=== PATIENT | female | born 1985 | race Caucasian/White ===

== ENCOUNTER 2017-03-05 13:54 | Emergency (ER) | payer SELFPAY ==
[2017-03-05 14:02] VITALS: RESP 16
[2017-03-05] MEDS ORDERED: ONDANSETRON 4 MG/2 ML VIAL IVP ONE (14:19)
[2017-03-05] MEDS ORDERED: NS 1,000 ML IV ONE ×2 (14:19→17:39)
[2017-03-05] MEDS ORDERED: HYDROmorphONE/DILAUDID 1 MG/ML INJ IVP ONE ×2 (14:19→17:39)
[2017-03-05 14:44] LABS: PLATELET COUNT 279 10^3/uL (150-400)
[2017-03-05] MEDS ORDERED: IOPAMIDOL (ISOVUE-300) 100 ML BTL ONE (16:29)
[2017-03-05] MEDS ORDERED: fentaNYL 100 MCG/2 ML INJ IVP ONE (16:29)
--- NOTE | 2017-03-05 17:11 | EDPHY ---
H & P Stated Complaint: intermittent mid abd pain and N and V and anorexia x9 days - Personal History LMP (Females 10-55): IUD In Place Current Tetanus/Diphtheria Vaccine: Yes Tetanus Vaccine Date: 2016 - Medical/Surgical History Hx Asthma: No Hx Chronic Respiratory Disease: No Hx Diabetes: No Hx Cardiac Disease: No Hx Renal Disease: No Hx Cirrhosis: No Hx Alcoholism: No Hx HIV/AIDS: No Hx Splenectomy or Spleen Trauma: No Other PMH: gastritis - Social History Smoking Status: Never smoked HPI/ROS: Chief complaint: Abdominal pain History of present illness: This is a 31-year-old female who presents to the emergency department for evaluation of abdominal pain. She reports the onset of symptoms approximately 9 days ago. Symptoms originate around the umbilicus but radiates to the right side. The right lower quadrant is most uncomfortable. She has had associated nausea and vomiting. Symptoms have waxed and waned in nature. She denies other associated signs or symptoms including no fevers, no diarrhea or constipation, no abnormal vaginal discharge or discomfort, no urinary symptoms. Review of systems: A 10 point review of systems was obtained and other than described above was negative (Jd Guardado) - Physical Exam Exam: General Appearance: Alert, nontoxic. Eyes: Pupils equal and round no pallor or injection. ENT, Mouth: Mucous membranes moist. Respiratory: There are no retractions, lungs are clear to auscultation. Cardiovascular: Regular rate and rhythm. Gastrointestinal: Bowel sounds are normal. There is mild guarding of the abdomen, patient is tender to the right side of the abdomen both upper and lower quadrant with point of maximal intensity in the right lower quadrant. Neurological: Alert and oriented x4. Strength and sensation intact and symmetrical. Skin: Warm and dry, no rashes. Musculoskeletal: Neck is supple non tender. Extremities are symmetrical, full range of motion. Psychiatric: Patient is oriented X 3, there is no agitation. (Jd Guardado) Constitutional: Initial Vital Signs Temperature (C) 36.9 C 03/05/17 13:59 Heart Rate 110 H 03/05/17 13:59 Respiratory Rate 16 03/05/17 13:59 Blood Pressure 149/99 H 03/05/17 13:59 O2 Sat (%) 95 03/05/17 13:59 O2 Delivery Mode Room Air Allergies/Adverse Reactions: No Known Allergies Allergy (Unverified 03/05/17 13:59) Home Medications: Medication Instructions Recorded Hydrocodone/APAP 325 [[place] 1 tab PO Q6H #10 tab 03/05/17 5/325 (*)] Ranitidine HCl 03/05/17 Medical Decision Making - Diagnostics Imaging Results: Imaging Impressions Abdomen Ultrasound 03/05/17 15:26 Impression: Suspect early appendicitis. Findings and recommendations discussed with Emergency Department physician, Jd Guardado PA-C at 1624 hours on March 05, 2017. Final report concurs with initial preliminary interpretation. Pelvic/Renal Ultrasound 03/05/17 15:26 Impression: 1. Appropriately-positioned intrauterine device. 2. Normal appearance of the ovaries, with no adnexal mass, torsion, or free fluid. Findings were discussed with Tigist Stanford PA-C at 18:22, on 03/05/2017. Abdomen CT 03/05/17 16:26 Impression: 1. Enlarged right ovary measuring 4 x 3.2 cm. Recommend ultrasound pelvis to rule out torsion. 2. No CT evidence of appendicitis, abscess or bowel obstruction. Cosign: Dr. Lawrence Hoover. Findings and recommendations discussed with Emergency Department physician, Dr. Brent العلي at 17:22 hour, 03/05/2017. Final report concurs with initial preliminary interpretation. I reviewed the CT and discussed the findings with Dr. Davis which shows a normal appendix but probable right ovarian cyst. Ultrasound recommended ( Brent العلي) ED Course/Re-evaluation: I saw and evaluated the patient at 5:20 p.m.. The patient, her , and I discussed imaging study results, treatment plan including recommendation for ultrasound. They expressed understanding and agreement Patient request pain medication. She will be medicated prior to ultrasound Re-evaluation at 6:45 p.m.. Patient is stable. She and I discussed imaging and lab results. We discussed treatment plan including criteria for return importance of follow-up further evaluation. She expresses understanding and agreement (Brent العلي) Differential Diagnosis: I considered appendicitis, urinary tract infection, ectopic , ovarian cyst, ovarian torsion (Brent العلي) - Data Points Laboratory Results: Laboratory Results 03/05/17 14:30 03/05/17 14:30 03/05/17 03/05/17 03/05/17 18:25 14:30 14:30 WBC RBC Hgb Hct MCV MCH MCHC RDW Plt Count MPV Neut % (Auto) Lymph % (Auto) Jenkins % (Auto) Eos % (Auto) Baso % (Auto) Nucleat RBC Rel Count Absolute Neuts (auto) Absolute Lymphs (auto) Absolute Monos (auto) Absolute Eos (auto) Absolute Basos (auto) Absolute Nucleated RBC Immature Gran % Immature Gran # Sodium 140 mEq/L mEq/L (134-144) Potassium 4.3 mEq/L mEq/L (3.5-5.2) Chloride 104 mEq/L mEq/L (97-110) Carbon Dioxide 18 mEq/l L mEq/l (22-31) Anion Gap 18 mEq/L H mEq/L (8-16) BUN 12 mg/dL mg/dL (7-23) Creatinine 0.7 mg/dL mg/dL (0.6-1.0) Estimated GFR > 60 Glucose 77 mg/dL mg/dL (70-100) Calcium 9.9 mg/dL mg/dL (8.5-10.4) Total Bilirubin 1.2 mg/dL mg/dL (0.1-1.4) Conjugated Bilirubin 0.3 mg/dL mg/dL (0.0-0.5) Unconjugated Bilirubin 0.9 mg/dL mg/dL (0.0-1.1) AST 21 IU/L IU/L (14-46) ALT 32 IU/L IU/L (9-52) Alkaline Phosphatase 56 IU/L IU/L (38-126) Total Protein 7.9 g/dL g/dL (6.3-8.2) Albumin 4.9 g/dL g/dL (3.5-5.0) Lipase 67 IU/L IU/L (23-300) Beta HCG, Qual NEGATIVE Urine Color YELLOW Urine Appearance HAZY Urine pH 6.0 (5.0-7.5) Ur Specific Atkinson > 1.035 H (1.002-1.030) Urine Protein NEGATIVE (NEGATIVE) Urine Ketones 2+ H (NEGATIVE) Urine Blood NEGATIVE (NEGATIVE) Urine Nitrate NEGATIVE (NEGATIVE) Urine Bilirubin NEGATIVE (NEGATIVE) Urine Urobilinogen NEGATIVE EU EU (0.2-1.0) Ur Leukocyte Esterase NEGATIVE (NEGATIVE) Urine RBC 1-3 /hpf /hpf (0-3) Urine WBC 1-3 /hpf /hpf (0-3) Ur Epithelial Cells TRACE /lpf /lpf (NONE-1+) Urine Mucus TRACE /lpf /lpf (NONE-1+) Urine Glucose NEGATIVE (NEGATIVE) 03/05/17 14:30 WBC 7.73 10^3/uL 10^3/uL (3.80-9.50) RBC 4.75 10^6/uL 10^6/uL (4.18-5.33) Hgb 14.9 g/dL g/dL (12.6-16.3) Hct 41.9 % % (38.0-47.0) MCV 88.2 fL fL (81.5-99.8) MCH 31.4 pg pg (27.9-34.1) MCHC 35.6 g/dL g/dL (32.4-36.7) RDW 12.1 % % (11.5-15.2) Plt Count 279 10^3/uL 10^3/uL (150-400) MPV 11.0 fL fL (8.7-11.7) Neut % (Auto) 68.3 % % (39.3-74.2) Lymph % (Auto) 21.9 % % (15.0-45.0) Jenkins % (Auto) 8.7 % % (4.5-13.0) Eos % (Auto) 0.0 % L % (0.6-7.6) Baso % (Auto) 0.8 % % (0.3-1.7) Nucleat RBC Rel Count 0.0 % % (0.0-0.2) Absolute Neuts (auto) 5.29 10^3/uL 10^3/uL (1.70-6.50) Absolute Lymphs (auto) 1.69 10^3/uL 10^3/uL (1.00-3.00) Absolute Monos (auto) 0.67 10^3/uL 10^3/uL (0.30-0.80) Absolute Eos (auto) 0.00 10^3/uL L 10^3/uL (0.03-0.40) Absolute Basos (auto) 0.06 10^3/uL 10^3/uL (0.02-0.10) Absolute Nucleated RBC 0.00 10^3/uL 10^3/uL (0-0.01) Immature Gran % 0.3 % % (0.0-1.1) Immature Gran # 0.02 10^3/uL 10^3/uL (0.00-0.10) Sodium Potassium Chloride Carbon Dioxide Anion Gap BUN Creatinine Estimated GFR Glucose Calcium Total Bilirubin Conjugated Bilirubin Unconjugated Bilirubin AST ALT Alkaline Phosphatase Total Protein Albumin Lipase Beta HCG, Qual Urine Color Urine Appearance Urine pH Ur Specific Atkinson Urine Protein Urine Ketones Urine Blood Urine Nitrate Urine Bilirubin Urine Urobilinogen Ur Leukocyte Esterase Urine RBC Urine WBC Ur Epithelial Cells Urine Mucus Urine Glucose Medications Given: Discontinued Medications Hydromorphone HCl (Dilaudid) 0.5 mg IVP EDNOW ONE Stop: 03/05/17 14:20 Last Admin: 03/05/17 18:30 Dose: 0.5 mg Sodium Chloride (Ns) 1,000 mls @ 0 mls/hr IV EDNOW ONE; Wide Open PRN Reason: Protocol Stop: 03/05/17 14:20 Last Admin: 03/05/17 14:50 Dose: 1,000 mls Sodium Chloride (Ns) 1,000 mls @ 0 mls/hr IV EDNOW ONE; Wide Open PRN Reason: Protocol Stop: 03/05/17 17:40 Last Admin: 03/05/17 18:36 Dose: 1,000 mls Ketorolac Tromethamine (Toradol) 30 mg IVP EDNOW ONE Stop: 03/05/17 17:40 Last Admin: 03/05/17 18:36 Dose: 30 mg Ondansetron HCl (Zofran) 4 mg IVP EDNOW ONE Stop: 03/05/17 14:20 Last Admin: 03/05/17 14:51 Dose: 4 mg Departure - Departure Disposition: Home, Routine, Self-Care Clinical Impression: Ovarian cyst Qualifiers: Laterality: right Qualified Code(s): N83.201 - Unspecified ovarian cyst, right side Condition: Good Instructions: Ovarian Cyst (ED) Additional Instructions: Follow-up with a primary care doctor for recheck In regards to pain control see the following: Use ibuprofen [600] mg every 6 hr for the next 2-3 days for pain In addition You have been prescribed [Thom[place]] for pain. [Thom[place]] contains Tylenol, do not take extra Tylenol/acetaminophen/Apap with it. It is sedating. If symptoms worsen or new symptoms develop return to the emergency room for recheck Follow-up with gynecology in the next 2-3 days if not improved and then repeat ultrasound after 1 menstrual cycle Referrals: NONE *PRIMARY CARE P,. [Primary Care Provider] - As per Instructions [facility],. [Clinic] - As per Instructions Clara Ross MD [Medical Doctor] - 2-3 days, if not improved Prescriptions: Hydrocodone/APAP 5/325 [[place] 5/325 (*)] 1 tab PO Q6H #10 tab
[2017-03-05] MEDS ORDERED: KETOROLAC 30 MG/1 ML SDV IVP ONE (17:39)
[2017-03-05 19:52] VITALS: BP 133/70; PULSE 86; TEMP 98.6; O2SAT 95
== END 2017-03-05 19:42 | disposition home or self-care (01) ==
DX: N83.201 Unspecified ovarian cyst, right side (principal); E86.9 Volume depletion, unspecified
CPT/HCPCS: 96374; J1170; J1885; J2405; Q9967